=== PATIENT | female | born 1970 ===

== ENCOUNTER 2023-05-27 05:25 | Day surgery (SDC) | payer OTHER ==
[2023-05-19 08:57] LABS: PH,URINE 5.5 (5.0-8.0); URINE APPEARANCE Clear; URINE BILIRRUBIN Negative (NEGATIVE); URINE BLOOD Negative; URINE COLOR Yellow; URINE GLUCOSE Negative (NEGATIVE); URINE LEUKOCYTE Negative; URINE NITRATE Negative; URINE PROTEIN Negative (NEGATIVE)
[2023-05-19 09:01] LABS: URINE BACTERIA 275.8 uL (0.0-1933); URINE EPITHELIAL CELLS 21.6 uL (0.0-38.8); URINE RBC 9.4 uL (0.0-20.8); URINE WBC 12.8 uL (0.0-23.2)
[2023-05-19 09:02] LABS: HEMATOCRIT 38.6 % (36.0-45.00); HEMOGLOBIN 13.5 g/dL (12.0-15.00); MEAN CELL VOLUME 86.9 fL (80.00-100.00); MEAN CORPUSCULAR HEMOGLOBIN 30.4 pg (27.00-32.0); MEAN CORPUSCULAR HGB CONC 34.9 g/dl (32.0-36.0); PLATELET COUNT 325 K/uL (150-450); RED BLOOD COUNT 4.44 M/uL (4.00-6.00); RED CELL DISTRIBUTION WIDTH 12.7 % (11.5-14.5)
[2023-05-19 09:29] LABS: ALBUMIN 4.1 gm/dL (3.4-5.0); BILIRUBIN TOTAL 0.53 mg/dL (0.3-1.2); CALCIUM 9.4 mg/dL (8.5-10.1); CREATININE SERUM 0.67 mg/dL (0.55-1.02); GFR 92.43; GLOBULINA 3.3 G/DL (2.4-3.5); POTASSIUM 4.06 mEq/L (3.5-5.1); TOTAL PROTEIN 7.4 gm/dL (6.4-8.2)
[2023-05-19 09:35] LABS: INR 1.03; PARTIAL THROMBOPLASTIN TIME 27.1 SECONDS (22.0-34.0); PROTHROMBIN TIME 10.8 SECONDS (9.0-11.5)
[2023-05-27] MEDS ORDERED: CEFAZOLIN SODIUM 1,000 MG VIAL ONE (06:15)
[2023-05-27] MEDS ORDERED: BUPIVACAINE HCL/PF 0.5% 30ML ML ONE (06:34)
[2023-05-27] MEDS ORDERED: KETOROLAC TROMETHAMINE 30 MG VIAL ONE (06:34)
[2023-05-27] MEDS ORDERED: KETOROLAC TROMETHAMINE 30 MG VIAL IJ ONE (07:00)
[2023-05-27] MEDS ORDERED: CEFAZOLIN SODIUM 1,000 MG VIAL IV ONE (07:00)
[2023-05-27] MEDS ORDERED: BUPIVACAINE HCL/PF 0.5% 30ML ML IJ ONE (07:00)
[2023-05-27] MEDS ORDERED: KETOROLAC TROMETHAMINE 30 MG VIAL IV ONE (07:00)
[2023-05-27] MEDS ORDERED: ISOPROPYL ALCOHOL 30 ML OUNCE TOP ONE (07:00)
[2023-05-27] MEDS ORDERED: ONDANSETRON HCL 2 MG/ML VIAL ONE (09:18)
== END 2023-05-27 11:15 | disposition home or self-care (01) ==
LOC: CIR.AMB 05:25
PROVIDERS: ATTEND Orthopaedic Surgery
DX: M75.42 Impingement syndrome of left shoulder (principal); M19.012 Primary osteoarthritis, left shoulder